=== PATIENT | female | born 1970 | race Caucasian/White ===

== ENCOUNTER 2017-02-17 17:49 | Emergency (ER) | payer OTHER ==
[~2017-02-17 17:49] MED LIST: ADVIL200 MG PO; ALBUTEROL0.09 MG/A1 INH; ALPRAZOLAM2 M2 PO; AMOXIL 875 MG875 MG PO; AMOXIL500 MG PO; AUGMENTIN 875-1 EACH PO; AZITHROMYCIN250 MG PO; CLONIDINE0.1 MG PO; CYCLOBENZAPRINE10 M1 PO; CYCLOBENZAPRINE10 M2 PO; DEXTROAMP-AMPHE30 MG PO; ENDOCET 325 MG-1 TA1 PO; FLOVENT HFA12 G1 INH; HYDROXYZINE PAM50 MG PO; IBU800 MG PO; IBUPROFEN800 M1 PO; MEDROL DOSEPAK1 PAC PO; NICOTINE T21 MG/24 H TOP; PERCOCET 325 MG1 TA2 PO; PERCOCET 5-3251 EACH PO; PREDNISONE10 MG PO; PROAIR HFA0.09 MG/Ac INH; TORADOL10 MG PO; VENTOLIN H0.09 MG/Ac INH; ZITHROMAX Z-PA250 MG PO
[2017-02-17 17:56] VITALS: BP 117/76
[2017-02-17] MEDS ORDERED: LAMOTRIGINE25 M3 PO (17:58)
[2017-02-17] MEDS ORDERED: AMITRIPTYLINE100 M2 PO (17:59)
== END 2017-02-17 19:35 | disposition admitted as inpatient to this hospital (09) ==
LOC: ERH 17:49
DX: R41.82 Altered mental status, unspecified (principal); W18.30XA Fall on same level, unspecified, initial encounter

== ENCOUNTER 2017-03-29 12:37 | Emergency (ER) | payer OTHER ==
[~2017-03-29] VITALS: Ht 152.4 cm; Wt 45.4 kg
[~2017-03-29 12:37] MED LIST changes: +AMITRIPTYLINE100 M2 PO; +LAMOTRIGINE25 M3 PO
[2017-03-29 12:47] VITALS: BP 138/82
--- NOTE | 2017-03-29 12:52 | ED GENERAL ADULT ---
History of Present Illness General Chief Complaint: ETOH/Drug Related Complaint Stated Complaint: POSSIBLE OD ON XANAX Source: patient, EMS Exam Limitations: no limitations Vital Signs & Intake/Output Vital Signs & Intake/Output Vital Signs Date Time Temp Pulse Resp B/P B/P Pulse O2 O2 Flow FiO2 Mean Ox Delivery Rate 03/29 1247 98.5 72 18 138/82 99 Room Air Allergies Coded Allergies: tramadol (ABD CRAMPS, NAUSEA 02/22/16) Reconcile Medications Albuterol Sulfate (Albuterol Sulfate Hfa) 0.09 MG/Actuation KARIN 2 PUFF INH Q4- 6 PRN PRN ASTHMA (Reported) 90 MCG PER PUFF Alprazolam 2 MG TABLET 1 TAB PO TID ANXIETY (Reported) Amitriptyline HCl 100 MG TABLET 1 TAB PO QPM ANXIETY (Reported) Dextroamphetamine/Amphetamine (Dextroamp-Amphetamin 30 MG Tab) 30 MG TABLET 1 TAB PO BID ADD (Reported) Fluticasone Propionate (Flovent Hfa) (Unknown Strength) AER.W.ADAP 2 PUF INH BID ASTHMA (Reported) Ibuprofen 800 MG TABLET 1 TAB PO TID PAIN Lamotrigine 25 MG TABLET 2 TAB PO DAILY ANXIETY (Reported) Oxycodone HCl/Acetaminophen (Percocet 5-325 MG Tablet) 1 EACH TABLET 1 TAB PO TID PRN pain eight...[id number] Oxycodone HCl/Acetaminophen (Percocet 5-325 MG Tablet) 1 EACH TABLET 1 TAB PO TID PRN PAIN Triage Note: PT BIBA AFTER 911 CALLED BY FAMILY WHEN PT WAS DIFFICULT TO WAKE. PT DENIES TAKING MORE THAN HER USUAL MEDICATION USE AND ETOH INGESTION. VSS PER EMS, BLOOD GLUCOSE 105. UPON ARRIVAL PT A+O, APPROPRAITE DEMEANOR, IN NAD. Triage Nurses Notes Reviewed? yes HPI: Patient was out partying last night and got home at 8:00 this morning. Patient lives with her mom. Patient fell asleep. About 12:30 mom tried to wake her up the patient was fairly lethargic so called 911. Patient was put on a police paper. Patient denies any suicidal or homicidal ideations. Patient does admit to crack use. Patient is alert and oriented 3. Patient is not sure why she is here in the emergency department. The police paper just states that she uses crack and Xanax. Past History Medical History Any Pertinent Medical History? 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 No Review of Systems Review of Systems Constitutional: Reports: no symptoms. EENTM: Reports: no symptoms. Respiratory: Reports: no symptoms. Cardiovascular: Reports: no symptoms. GI: Reports: no symptoms. Genitourinary: Reports: no symptoms. Musculoskeletal: Reports: no symptoms. Skin: Reports: no symptoms. Neurological/Psychological: Reports: no symptoms. Hematologic/Endocrine: Reports: no symptoms. Immunologic/Allergic: Reports: no symptoms. All Other Systems: Reviewed and Negative Physical Exam Physical Exam General Appearance: well developed/nourished, alert, awake Head: atraumatic, normal appearance Eyes: Bilateral: PERRL, EOMI. Ears, Nose, Throat: normal pharynx, normal ENT inspection, hearing grossly normal Neck: normal inspection, supple, full range of motion Respiratory: normal breath sounds, chest non-tender, no respiratory distress, lungs clear Cardiovascular: regular rate/rhythm, normal peripheral pulses Gastrointestinal: normal bowel sounds, soft, non-tender, no organomegaly Back: normal inspection, normal range of motion Extremities: normal inspection, normal capillary refill, normal range of motion, no edema Neurologic/Psych: no motor/sensory deficits, awake, alert, oriented x 3, normal gait, normal mood/affect Skin: intact, normal color, warm/dry Lymphatic: no anterior cervical kumar Core Measures ACS in differential dx? No CVA/TIA Diagnosis: No Severe Sepsis Present: No Septic Shock Present: No Progress Differential Diagnoses I considered the following diagnoses in my evaluation of the patient: [DRUG INTOXICATION] Plan of Care: HOLD FOR COLLABERATING INFORMATION Initial ED EKG: none Comments: Patient remains alert and oriented 3. Patient walks with a steady gait. Patient denies any suicidal homicidal ideations. Patient wants to be discharged. There is does not appear to be any family concerns of suicidal or homicidal ideations. The family will not come pick her up because of her drug use. One cannot mandate detox or that she stopped using drugs. Patient is stable for discharge. Departure Departure Disposition: HOME OR SELF CARE Condition: Stable Clinical Impression Primary Impression: Crack cocaine use Referrals: NAVID OSMAN,BARTOLO Thomas (PCP/Family) Additional Instructions: RETURN FOR ANY CONCERNS Departure Forms: Customer Survey General Discharge Information Critical Care Note Critical Care Note Critical Care Time: non-applicable
== END 2017-03-29 14:36 ==
LOC: ERH 12:37
DX: F14.10 Cocaine abuse, uncomplicated (principal)